=== PATIENT | male | born 1980 | race African-American/Black ===

== ENCOUNTER 2023-08-09 18:03 | Inpatient (IN) | payer OTHER, SELFPAY ==
[2023-08-09] MEDS ORDERED: Acetaminophen 325 MG TAB PO PRN (21:17)
[2023-08-09] MEDS ORDERED: Calcium Carbonate 500 MG ChewTAB PO PRN (21:17)
[2023-08-09] MEDS ORDERED: Senokot S 8.6-50 MG TAB PO PRN (21:17)
[2023-08-09] MEDS ORDERED: Metoprolol Tartrate 25 MG TAB PO SCH (21:30)
[2023-08-09] MEDS ORDERED: Amoxicillin/Potassium Clav 875 MG TAB PO SCH (22:00)
[2023-08-09] MEDS: Guaifenesin DM 100-10/5 ML UDCUP PO PRN (22:12)
[2023-08-09 22:40] VITALS: BMI 39.0
[2023-08-10 05:08] LABS: #Eosinphils 0.1 10x3/uL (0.0-0.5); #Monocytes 0.8 10x3/uL (0.0-1.1); #Neutrophils 2.8 10x3/uL (1.5-8.4); %Basophils 0.4 % (0.0-2.0); %Eosinophils 1.4 % (0.0-6.0); %Lymphocytes 23.7 % (18.0-47.0); %Monocytes 17.1 % (0.0-10.0); %Neutrophils 56.8 % (40.0-75.0); Hematocrit 32.3 % (38.8-50.0); Hemoglobin 10.1 g/dL (13.5-17.5); Mean Corpuscular HGB CONC 31.3 g/dL (32.0-36.0); Mean Corpuscular Hemoglobin 24.9 pg (27.0-33.0); Mean Corpuscular Volume 79.8 fl (81.2-95.1); Mean Platelet Volume 10.2 fl (7.4-10.4); Platelet Count 219 10x3/uL (150-450); RBC Distribution Width 21.2 % (11.5-14.5); Red Blood Cell (RBC) Count 4.05 10x6/uL (4.32-5.72); White Blood Cell (WBC) Count 4.9 10x3/uL (3.5-10.5)
[2023-08-10 05:10] LABS: Anion Gap 14 mmol/L (10-20); BUN (Urea Nitrogen) 17 mg/dL (8.9-20.6); Calc. Creatinine Clearance 157 mL/min (70-130); Calcium 8.5 mg/dL (7.8-10.44); Carbon Dioxide 22 mmol/L (22-29); Chloride 104 mmol/L (98-107); Estimated GFR 86; Glucose 88 mg/dL (70-105); Sodium 136 mmol/L (136-145)
[2023-08-10] MEDS: Furosemide 40 MG (4 mL) VIAL SLOW IVP SCH ×2 (06:16→13:58)
[2023-08-10] MEDS ORDERED: FLU VACC QS2023-24(6MOS UP)/PF 60 MCG/0.5 ML SYRINGE IM ONE (09:00)
[2023-08-10] MEDS: Apixaban 5 MG TAB PO SCH ×2 (09:05→21:02)
[2023-08-10] MEDS: Losartan 25 MG TAB PO SCH (09:05)
[2023-08-10] MEDS: Aspirin 81 mg Enteric Coated Tablet PO SCH (09:05)
[2023-08-10] MEDS: Amoxicillin/Potassium Clav 875 MG TAB PO SCH ×2 (09:06→21:02)
[2023-08-10] MEDS: Spironolactone 25 MG TAB PO SCH (09:06)
[2023-08-10] MEDS: Multivitamin W/ Minerals 1 TAB PO SCH (09:06)
[2023-08-10] MEDS: Aripiprazole 10 MG TAB PO SCH ×2 (10:59→21:02)
[2023-08-10] MEDS: Atorvastatin Calcium 40 MG TAB PO SCH (21:02)
[2023-08-10] MEDS: Guaifenesin DM 100-10/5 ML UDCUP PO PRN (21:02)
[2023-08-11] MEDS: Furosemide 40 MG (4 mL) VIAL SLOW IVP SCH ×3 (06:21→21:42)
[2023-08-11] MEDS: Amoxicillin/Potassium Clav 875 MG TAB PO SCH ×2 (08:56→21:40)
[2023-08-11] MEDS: Spironolactone 25 MG TAB PO SCH (08:56)
[2023-08-11] MEDS: Multivitamin W/ Minerals 1 TAB PO SCH (08:56)
[2023-08-11] MEDS: Losartan 25 MG TAB PO SCH (08:56)
[2023-08-11] MEDS: Aripiprazole 10 MG TAB PO SCH ×2 (08:58→21:40)
[2023-08-11] MEDS: Aspirin 81 mg Enteric Coated Tablet PO SCH (08:58)
[2023-08-11] MEDS: Apixaban 5 MG TAB PO SCH ×2 (08:58→21:45)
[2023-08-11] MEDS: Atorvastatin Calcium 40 MG TAB PO SCH (21:40)
[2023-08-11] MEDS: Guaifenesin DM 100-10/5 ML UDCUP PO PRN (21:52)
[2023-08-12] MEDS: Furosemide 40 MG (4 mL) VIAL SLOW IVP SCH ×3 (06:30→21:33)
[2023-08-12] MEDS: Amoxicillin/Potassium Clav 875 MG TAB PO SCH (08:06)
[2023-08-12] MEDS: Multivitamin W/ Minerals 1 TAB PO SCH (08:06)
[2023-08-12] MEDS: Aspirin 81 mg Enteric Coated Tablet PO SCH (08:06)
[2023-08-12] MEDS: Aripiprazole 10 MG TAB PO SCH ×2 (08:07→21:33)
[2023-08-12] MEDS: Spironolactone 25 MG TAB PO SCH (08:07)
[2023-08-12] MEDS: Apixaban 5 MG TAB PO SCH ×2 (08:07→21:33)
[2023-08-12] MEDS: Losartan 25 MG TAB PO SCH (08:07)
[2023-08-12] MEDS: Guaifenesin DM 100-10/5 ML UDCUP PO PRN (10:44)
[2023-08-12] MEDS: Atorvastatin Calcium 40 MG TAB PO SCH (21:33)
[2023-08-13 04:54] LABS: Anion Gap 12 mmol/L (10-20); BUN (Urea Nitrogen) 29 mg/dL (8.9-20.6); Calc. Creatinine Clearance 144 mL/min (70-130); Calcium 8.2 mg/dL (7.8-10.44); Carbon Dioxide 27 mmol/L (22-29); Chloride 102 mmol/L (98-107); Estimated GFR 79; Glucose 95 mg/dL (70-105); Potassium 3.9 mmol/L (3.5-5.1); Sodium 137 mmol/L (136-145)
[2023-08-13] MEDS: Furosemide 40 MG (4 mL) VIAL SLOW IVP SCH (06:37)
[2023-08-13] MEDS: Aspirin 81 mg Enteric Coated Tablet PO SCH (08:28)
[2023-08-13] MEDS: Aripiprazole 10 MG TAB PO SCH ×2 (08:29→21:29)
[2023-08-13] MEDS: Multivitamin W/ Minerals 1 TAB PO SCH (08:29)
[2023-08-13] MEDS: Losartan 25 MG TAB PO SCH (08:29)
[2023-08-13] MEDS: Apixaban 5 MG TAB PO SCH ×2 (08:29→21:30)
[2023-08-13] MEDS: Spironolactone 25 MG TAB PO SCH (08:29)
[2023-08-13] MEDS ORDERED: Furosemide 40 MG (4 mL) VIAL SLOW IVP SCH (21:00)
[2023-08-13] MEDS: Atorvastatin Calcium 40 MG TAB PO SCH (21:31)
[2023-08-14] MEDS: Multivitamin W/ Minerals 1 TAB PO SCH (08:45)
[2023-08-14] MEDS: Losartan 25 MG TAB PO SCH (08:46)
[2023-08-14] MEDS: Apixaban 5 MG TAB PO SCH ×2 (08:46→20:48)
[2023-08-14] MEDS: Spironolactone 25 MG TAB PO SCH (08:47)
[2023-08-14] MEDS: Furosemide 40 MG TAB PO SCH ×2 (08:47→13:04)
[2023-08-14] MEDS: Aspirin 81 mg Enteric Coated Tablet PO SCH (08:47)
[2023-08-14] MEDS: Aripiprazole 10 MG TAB PO SCH ×2 (08:48→20:52)
[2023-08-14] MEDS: Atorvastatin Calcium 40 MG TAB PO SCH (20:48)
[2023-08-15] MEDS: Aripiprazole 10 MG TAB PO SCH ×2 (08:30→22:10)
[2023-08-15] MEDS: Losartan 25 MG TAB PO SCH (08:32)
[2023-08-15] MEDS: Aspirin 81 mg Enteric Coated Tablet PO SCH (08:32)
[2023-08-15] MEDS: Furosemide 40 MG TAB PO SCH ×2 (08:33→13:14)
[2023-08-15] MEDS: Spironolactone 25 MG TAB PO SCH (08:33)
[2023-08-15] MEDS: Multivitamin W/ Minerals 1 TAB PO SCH (08:33)
[2023-08-15] MEDS: Apixaban 5 MG TAB PO SCH ×2 (08:33→22:10)
[2023-08-15] MEDS ORDERED: ARIPIPRAZOLE 400 MG IM ONE (15:14)
[2023-08-15] MEDS: Atorvastatin Calcium 40 MG TAB PO SCH (22:10)
[2023-08-16 04:22] LABS: #Eosinphils 0.2 10x3/uL (0.0-0.5); #Monocytes 0.9 10x3/uL (0.0-1.1); #Neutrophils 2.1 10x3/uL (1.5-8.4); %Basophils 0.8 % (0.0-2.0); %Eosinophils 3.1 % (0.0-6.0); %Lymphocytes 37.1 % (18.0-47.0); %Monocytes 16.9 % (0.0-10.0); %Neutrophils 41.5 % (40.0-75.0); Hematocrit 38.9 % (38.8-50.0); Hemoglobin 11.9 g/dL (13.5-17.5); Mean Corpuscular HGB CONC 30.6 g/dL (32.0-36.0); Mean Corpuscular Hemoglobin 24.3 pg (27.0-33.0); Mean Corpuscular Volume 79.4 fl (81.2-95.1); Mean Platelet Volume 8.7 fl (7.4-10.4); Platelet Count 272 10x3/uL (150-450); RBC Distribution Width 20.5 % (11.5-14.5); White Blood Cell (WBC) Count 5.1 10x3/uL (3.5-10.5)
[2023-08-16 04:40] LABS: Anion Gap 12 mmol/L (10-20); BUN (Urea Nitrogen) 32 mg/dL (8.9-20.6); Calc. Creatinine Clearance 157 mL/min (70-130); Calcium 8.3 mg/dL (7.8-10.44); Carbon Dioxide 25 mmol/L (22-29); Chloride 103 mmol/L (98-107); Estimated GFR 88; Glucose 118 mg/dL (70-105); Potassium 3.9 mmol/L (3.5-5.1); Sodium 136 mmol/L (136-145)
[2023-08-16] MEDS: Losartan 25 MG TAB PO SCH (09:09)
[2023-08-16] MEDS: Furosemide 40 MG TAB PO SCH ×2 (09:09→18:06)
[2023-08-16] MEDS: Apixaban 5 MG TAB PO SCH (09:09)
[2023-08-16] MEDS: Aspirin 81 mg Enteric Coated Tablet PO SCH (09:09)
[2023-08-16] MEDS: Aripiprazole 10 MG TAB PO SCH (09:10)
[2023-08-16] MEDS: Spironolactone 25 MG TAB PO SCH (09:10)
[2023-08-16] MEDS: Multivitamin W/ Minerals 1 TAB PO SCH (11:12)
[2023-08-17] MEDS: Atorvastatin Calcium 40 MG TAB PO SCH (00:18)
[2023-08-17] MEDS: Aripiprazole 10 MG TAB PO SCH ×2 (00:18→09:35)
[2023-08-17] MEDS: Apixaban 5 MG TAB PO SCH ×2 (00:19→09:35)
[2023-08-17 05:19] LABS: Anion Gap 10 mmol/L (10-20); BUN (Urea Nitrogen) 35 mg/dL (8.9-20.6); Calc. Creatinine Clearance 153 mL/min (70-130); Calcium 8.4 mg/dL (7.8-10.44); Carbon Dioxide 24 mmol/L (22-29); Chloride 105 mmol/L (98-107); Estimated GFR 85; Glucose 94 mg/dL (70-105); Potassium 4.1 mmol/L (3.5-5.1); Sodium 135 mmol/L (136-145)
[2023-08-17] MEDS ORDERED: Furosemide 40 MG TAB PO SCH (09:00)
[2023-08-17] MEDS: Multivitamin W/ Minerals 1 TAB PO SCH (09:33)
[2023-08-17] MEDS: Spironolactone 25 MG TAB PO SCH (09:33)
[2023-08-17] MEDS: Aspirin 81 mg Enteric Coated Tablet PO SCH (09:34)
[2023-08-17] MEDS: Losartan 25 MG TAB PO SCH (09:35)
[2023-08-17 11:45] VITALS: BP 116/61; TEMP 98.4
== END 2023-08-17 16:00 | disposition home or self-care (01) | DRG 291 ==
LOC: CSHTELE 18:42 → OBSVTOIN 21:17 → CSHTELE 08-16 17:42
PROVIDERS: ADMIT Internal Medicine; ATTEND Family Medicine
DX: I13.0 Hypertensive heart and chronic kidney disease with heart failure and stage 1 through stage 4 chronic kidney disease, or unspecified chronic kidney disease (principal); I50.43 Acute on chronic combined systolic (congestive) and diastolic (congestive) heart failure; I31.39 Other pericardial effusion (noninflammatory); Z59.00 Homelessness unspecified; N18.2 Chronic kidney disease, stage 2 (mild); D63.1 Anemia in chronic kidney disease; E83.42 Hypomagnesemia; F17.200 Nicotine dependence, unspecified, uncomplicated; F10.90 Alcohol use, unspecified, uncomplicated; I42.8 Other cardiomyopathies; D70.9 Neutropenia, unspecified; F20.9 Schizophrenia, unspecified; I48.91 Unspecified atrial fibrillation; F19.10 Other psychoactive substance abuse, uncomplicated; E78.5 Hyperlipidemia, unspecified; K21.9 Gastro-esophageal reflux disease without esophagitis; Z91.199 Patient's noncompliance with other medical treatment and regimen due to unspecified reason; R63.4 Abnormal weight loss; Z90.89 Acquired absence of other organs; Z83.3 Family history of diabetes mellitus
CPT/HCPCS: 36415; 80048; 83880; 84145; 84484; 85025; J1940

== ENCOUNTER 2023-08-17 19:44 | Emergency (ER) | payer OTHER, SELFPAY | END 2023-08-17 21:56 | disposition home or self-care (01) | LOC: CSHERS 19:44 | DX: R06.02 Shortness of breath (principal); I50.9 Heart failure, unspecified; F17.210 Nicotine dependence, cigarettes, uncomplicated | CPT/HCPCS: 99281 ==